=== PATIENT | female | born 1945 | race Caucasian/White ===

== ENCOUNTER → 2016-03-06 | Outpatient (CLI) | payer OTHER ==
--- NOTE | 2016-03-06 13:00 | DX ---
PA and Lateral Chest - March 06, 2016 Indication: Cough. Follow up left basilar consolidation and effusion. Comparison: Portable chest dated February 19, and two-view chest dated February 17, 2016. Findings: The left subpulmonic effusion and left basilar consolidation have gradually improved since 3 weeks prior. A small left subpulmonic effusion and left basilar consolidation does persist. The rig ht lung remains clear and the heart size is normal. No pulmonary edema. A small to moderate hiatal he rnia persists. Impression: 1. Gradually improving left basilar consolidation. 2. Significant improvement of subpulmonic effusion is now small.
== END ==
LOC: FIMAGING 10:38
PROVIDERS: ATTEND Internal Medicine Pulmonary Disease
DX: J18.1 Lobar pneumonia, unspecified organism (principal); J90 Pleural effusion, not elsewhere classified

== ENCOUNTER → 2016-04-29 | Outpatient (CLI) | payer OTHER | LOC: FIMAGING 09:52 | PROVIDERS: ATTEND Internal Medicine Infectious Disease | DX: J18.9 Pneumonia, unspecified organism (principal) ==

== ENCOUNTER → 2016-05-17 | Outpatient (CLI) | payer OTHER | LOC: FIMAGING 10:09 | DX: Z12.31 Encounter for screening mammogram for malignant neoplasm of breast (principal) | CPT/HCPCS: G0202 ==

== ENCOUNTER 2017-05-01 10:47 | Emergency (ER) | payer OTHER ==
[2017-05-01 10:54] VITALS: TEMP 97.5
[2017-05-01] MEDS ORDERED: IPRATROPIUM/ALBUTEROL 3 ML DEYVIAL IH ONE (11:20)
--- NOTE | 2017-05-01 11:20 | EDPHY ---
H & P Time Seen by Provider: 05/01/17 11:02 HPI/ROS: CHIEF COMPLAINT: Cough, shortness of breath HISTORY OF PRESENT ILLNESS: 72-year-old female with a history of asthma presents with cough and shortness of breath. Onset of sore throat, runny nose and cough yesterday. The cough is productive and associated with shortness of breath. The SOB is mild and occurs with exertion and with coughing. No known fever. She received a flu vaccination this year. History of pneumonia 1 year ago, requiring extensive ICU care. 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 Smoking Status: Never smoked Physical Exam: General Appearance: Alert, pleasant Eyes: Pupils equal and round, no conjunctival pallor ENT, Mouth: Mucous membranes moist Neck: Normal inspection Respiratory: Normal respiratory rate, diffuse expiratory wheezing Cardiovascular: Regular rate and rhythm Gastrointestinal: Abdomen is soft and nontender Neurological: A&O, nonfocal, normal gait Skin: Warm and dry, no rash Extremities: Normal inspection no tenderness Psychiatric: Mood and affect normal Constitutional: Initial Vital Signs Temperature (C) 36.4 C 05/01/17 10:52 Heart Rate 91 05/01/17 10:52 Respiratory Rate 18 05/01/17 10:52 Blood Pressure 134/94 H 05/01/17 10:52 O2 Sat (%) 96 05/01/17 10:52 O2 Delivery Mode Room Air Allergies/Adverse Reactions: Penicillins Allergy (Severe, Verified 05/04/17 05:08) Anaphylaxis oxycodone HCl [From Percocet] Allergy (Verified 05/04/17 05:08) Other-Enter Comments Home Medications: Medication Instructions Recorded Warfarin Sodium [Coumadin 2MG (*)] 2 mg PO DAILY16 02/13/16 Albuterol [Proventil Inhaler HFA 1 - 2 puffs IH Q4H #1 mdi 02/21/16 (*)] Azithromycin [Zithromax] 250 mg PO DAILY #6 tab 05/01/17 Symbicort 160-4.5 Mcg Inh (*) 05/01/17 predniSONE 1 tab PO DAILY #15 tab 05/01/17 Medical Decision Making - Diagnostics Imaging Results: Chest x-ray independently reviewed by me reveals no acute infiltrate. ED Course/Re-evaluation: This patient presents with a cough and bronchospasm. A DuoNeb was given. Declines prednisone. X-ray reveals no evidence of pneumonia. Oxygen saturation is normal, and wheezing resolved after duoneb. She is non-toxic appearing and afebrile. I feel that she can be safely discharged home. Given prior pneumonia and h/o asthma, rx for prednisone and zpak. Strongly encouraged her to take prednisone, as she is somewhat reluctant. Return precautions given. Differential Diagnosis: includes though not limited to pneumonia, pulm edema, status asthmaticus, empyema, PE - Data Points Medications Given: Discontinued Medications Albuterol/Ipratropium (Duoneb) 3 ml IH EDNOW ONE Stop: 05/01/17 11:21 Last Admin: 05/01/17 11:31 Dose: 3 ml Departure - Departure Disposition: Home, Routine, Self-Care Clinical Impression: Exacerbation of asthma Qualifiers: Asthma severity: mild Asthma persistence: intermittent Qualified Code(s): J45.21 - Mild intermittent asthma with (acute) exacerbation Acute bronchitis Qualifiers: Bronchitis organism: unspecified organism Qualified Code(s): J20.9 - Acute bronchitis, unspecified Condition: Good Instructions: Acute Bronchitis (ED), Bronchospasm (ED) Additional Instructions: Antibiotics can interfere with your protime. Have your protime rechecked 48-72 hours after starting antibiotics. Return for increasing shortness of breath, worsening cough, fever, any concerns. Referrals: Thuy Alvarado MD [Medical Doctor] - As per Instructions (Followup for persistent or worsening symptoms.) Prescriptions: Azithromycin [Zithromax] 250 mg PO DAILY #6 tab predniSONE 1 tab PO DAILY #15 tab
[2017-05-01 12:07] VITALS: BP 121/83; PULSE 92; RESP 16; O2SAT 94
== END 2017-05-01 12:07 | disposition home or self-care (01) ==
DX: J45.21 Mild intermittent asthma with (acute) exacerbation (principal); J20.9 Acute bronchitis, unspecified; Z85.810 Personal history of malignant neoplasm of tongue; Z79.01 Long term (current) use of anticoagulants

== ENCOUNTER 2017-05-04 05:04 | Inpatient (IN) | payer OTHER ==
[2017-05-04] MEDS ORDERED: IPRATROPIUM/ALBUTEROL 3 ML DEYVIAL IH ONE (05:21)
--- NOTE | 2017-05-04 05:26 | EDPHY ---
H & P Stated Complaint: SOB SEEN FRIDAY STARTED ON ZPAC, PREDNISONE NO BETTER Time Seen by Provider: 05/04/17 05:11 HPI/ROS: Chief Complaint: Shortness of breath HPI: 72-year-old woman with a history of asthma is presenting with several days of worsening cough and shortness of breath. She was seen here 2 days ago and diagnosed with bronchitis. She was started on prednisone and azithromycin. She had a negative chest x-ray at that time. Patient has been taking her medications was having worsening shortness of breath. This morning her breathing became significantly worse. She has a cough productive of some whitish sputum. No fevers or chills. No chest pain. She does have a history of hypercoagulable state and is on Coumadin. No pleuritic chest pain. No leg pain or swelling. No. Is of immobility. She states this does not feel like prior pulmonary emboli. ROS: 10 point Review of Systems is negative except as noted in the HPI. PMH: Asthma, hypercoagulable state, tongue cancer, PE and DVT Social History: [No] smoking, [no] alcohol, [ no recreational drug use] Family History: [non-contributory] Physical Exam: Gen: [Awake], [Alert], [No Distress] HEENT: [ ] [Nose: no rhinorrhea] Eyes: [PERRLA], [EOMI] Mouth: [Moist mucosa] [] Neck: [Supple], [no JVD] Chest: [nontender], diffuse expiratory wheezing, no focal rales or rhonchi Heart: [S1, S2 normal], [no murmur] Abd: [Soft], [non-tender], [no guarding] Back: [no CVA tenderness], [no] midline tenderness [] Ext: [no] edema, [non-tender] Skin: [no rash] Neuro: [CN II-XII intact], [Sensation grossly intact], Strength [5]/5 in [ bilateral] [upper and] [lower] extremities - Personal History Current Tetanus/Diphtheria Vaccine: Yes Current Tetanus Diphtheria and Acellular Pertussis (TDAP): Yes Tetanus Vaccine Date: 2007 - Medical/Surgical History Hx Asthma: No Hx Chronic Respiratory Disease: No Hx Diabetes: No Hx Cardiac Disease: No Hx Renal Disease: No Hx Cirrhosis: No Hx Alcoholism: No Hx HIV/AIDS: No Hx Splenectomy or Spleen Trauma: No Other PMH: tongue cancer, hypercoagulative blood disorder, superficial blood clots, knee replacements, pulmonary embolus, asthma, - Social History Smoking Status: Never smoked Constitutional: Initial Vital Signs Heart Rate 95 05/04/17 05:06 Respiratory Rate 18 05/04/17 05:06 Blood Pressure 134/93 H 05/04/17 05:06 O2 Sat (%) 89 L 05/04/17 05:06 O2 Delivery Mode Room Air Allergies/Adverse Reactions: Penicillins Allergy (Severe, Verified 05/04/17 05:08) Anaphylaxis oxycodone HCl [From Percocet] Allergy (Verified 05/04/17 05:08) Other-Enter Comments Home Medications: Medication Instructions Recorded Warfarin Sodium [Coumadin 2MG (*)] 2 mg PO DAILY16 02/13/16 Albuterol [Proventil Inhaler HFA 1 - 2 puffs IH Q4H #1 mdi 02/21/16 (*)] Azithromycin [Zithromax] 250 mg PO DAILY #6 tab 05/01/17 Symbicort 160-4.5 Mcg Inh (*) 05/01/17 predniSONE 1 tab PO DAILY #15 tab 05/01/17 Medical Decision Making ED Course/Re-evaluation: 72-year-old with a history of asthma presenting with increasing shortness of breath. She has seen here 2 days ago started on prednisone and albuterol and azithromycin. She is worse here. She is satting in the high 80s. I have given her a DuoNeb treatment. Following that she is still satting at 86% on room air. Will place an IV. Will check bloods including INR. IV Solu-Medrol. Will call the hospitalist for planned admission. - Data Points Medications Given: Discontinued Medications Albuterol/Ipratropium (Duoneb) 3 ml IH EDNOW ONE Stop: 05/04/17 05:22 Last Admin: 05/04/17 05:24 Dose: 3 ml Departure - Departure Disposition: [facility] Inpatient Acute Clinical Impression: Exacerbation of asthma Condition: Fair Referrals: Cecelia Gonzalez MD [Primary Care Provider] - As per Instructions
[2017-05-04] MEDS ORDERED: ONDANSETRON 4 MG/2 ML VIAL IVP PRN (05:52)
[2017-05-04] MEDS ORDERED: ONDANSETRON DISINTEGRATING 4 MG TAB PO PRN (05:52)
[2017-05-04] MEDS ORDERED: ACETAMINOPHEN 325 MG TAB PO PRN (05:52)
[2017-05-04] MEDS ORDERED: ALBUTEROL 3 ML DEYVIAL IH PRN (05:52)
[2017-05-04 06:05] LABS: PLATELET COUNT 248 10^3/uL (150-400)
[2017-05-04 06:16] LABS: INR 1.7 (0.83-1.16); PROTIME(PATIENT) 20.1 SEC (12.0-15.0)
--- NOTE | 2017-05-04 06:39 | PDGENHP ---
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 Patient states she developed reactive airways after bout of serious pneumonia in 2015. She began to feel short of breath on Friday. She had a sick contact at the gym and also worked with some hay at her stables. She thinks both triggers may have contributed. She was seen in ED on Friday and started on prednisone and azithromycin. She felt a bit better Friday but then began to feel worse again. She had severe wheezing this morning upon presentation but improved nicely with nebulizer treatment. At the time of my evaluation she is speaking in full sentences and only requiring 2 L/min O2. History Information - Allergies/Home Medication List Allergies/Adverse Reactions: Penicillins Allergy (Severe, Verified 05/04/17 05:08) Anaphylaxis oxycodone HCl [From Percocet] Allergy (Verified 05/04/17 05:08) Other-Enter Comments Home Medications: Warfarin Sodium [Coumadin 2MG (*)] 2 mg PO DAILY16 02/13/16 [Last Taken 16:30] Symbicort 160-4.5 Mcg Inh (*) 05/01/17 [Last Taken Unknown] I have personally reviewed and updated: family history, medical history - Past Medical History asthma, cancer, DVT - Family History Positive for: cancer - Social History Smoking Status: Never smoked Review of Systems Review of Systems: ROS: 10pt was reviewed & negative except for what was stated in HPI & below Physical Exam Physical Exam: Temp Pulse Resp BP Pulse Ox 36.6 C 91 18 120/74 94 05/04/17 06:30 05/04/17 06:00 05/04/17 06:00 05/04/17 06:00 05/04/17 06:00 O2 (L/minute) 3 Constitutional: no apparent distress, not in pain Eyes: PERRL, EOMI Ears, Nose, Mouth, Throat: moist mucous membranes, no oral mucosal ulcers Cardiovascular: regular rate and rhythym, no murmur, rub, or gallop Respiratory: no respiratory distress, expiratory wheeze Gastrointestinal: normoactive bowel sounds, soft, non-tender abdomen Skin: warm, no induration Musculoskeletal: full muscle strength, no muscle tenderness Neurologic: AAOx3, CN II-XII Intact Psychiatric: interacting appropriately, not anxious Lab Data & Imaging Review 05/04/17 05:55 05/04/17 05:55 WBC 7.94 10^3/uL (3.80-9.50) 05/04/17 05:55 RBC 4.69 10^6/uL (4.18-5.33) 05/04/17 05:55 Hgb 13.4 g/dL (12.6-16.3) 05/04/17 05:55 Hct 40.8 % (38.0-47.0) 05/04/17 05:55 MCV 87.0 fL (81.5-99.8) 05/04/17 05:55 MCH 28.6 pg (27.9-34.1) 05/04/17 05:55 MCHC 32.8 g/dL (32.4-36.7) 05/04/17 05:55 RDW 14.5 % (11.5-15.2) 05/04/17 05:55 Plt Count 248 10^3/uL (150-400) 05/04/17 05:55 MPV 9.2 fL (8.7-11.7) 05/04/17 05:55 Neut % (Auto) 65.5 % (39.3-74.2) 05/04/17 05:55 Lymph % (Auto) 23.7 % (15.0-45.0) 05/04/17 05:55 [place] % (Auto) 8.8 % (4.5-13.0) 05/04/17 05:55 Eos % (Auto) 1.0 % (0.6-7.6) 05/04/17 05:55 Baso % (Auto) 0.6 % (0.3-1.7) 05/04/17 05:55 Nucleat RBC Rel Count 0.0 % (0.0-0.2) 05/04/17 05:55 Absolute Neuts (auto) 5.20 10^3/uL (1.70-6.50) 05/04/17 05:55 Absolute Lymphs (auto) 1.88 10^3/uL (1.00-3.00) 05/04/17 05:55 Absolute Monos (auto) 0.70 10^3/uL (0.30-0.80) 05/04/17 05:55 Absolute Eos (auto) 0.08 10^3/uL (0.03-0.40) 05/04/17 05:55 Absolute Basos (auto) 0.05 10^3/uL (0.02-0.10) 05/04/17 05:55 Absolute Nucleated RBC 0.00 10^3/uL (0-0.01) 05/04/17 05:55 Immature Gran % 0.4 % (0.0-1.1) 05/04/17 05:55 Immature Gran # 0.03 10^3/uL (0.00-0.10) 05/04/17 05:55 PT 20.1 SEC (12.0-15.0) H 05/04/17 05:55 INR 1.70 (0.83-1.16) H 05/04/17 05:55 APTT 31.5 SEC (23.0-38.0) 05/04/17 05:55 Visualized and Interpreted Chest x-ray results: Yes Chest X-Ray results: no infiltrate Assessment & Plan Assessment: 72 yo F w/ hx of DVT/PE, RAD, and tongue CA p/w RAD exacerbation. Plan: 1. RAD exacerbation - Unclear trigger, patient describes sick contact at the gym and then she worked with hay at her stable prior to onset of symptoms. Symptoms progressed despite outpatient prednisone and azithromycin. Overall this appears mild currently as she is not in respiratory distress and only mildly hypoxic. - Continue prednisone and azithromycin, currently day 3/5 - Check respiratory PCR - Albuterol QID rolando + q2h PRN 2. AHRF - 2/2 above; wean O2 as able. 3. Hx of VTE/PE - On warfarin for AC, INR subtherapeutic at 1.7 on admission. - Will bridge with Lovenox 1 mg/kg BID until INR therapeutic, patient states she clots quickly w/ subtherapeutic INR - Will not purse wether PE is contributing to above as she is receiving treatment regardless 4. Hx tongue cancer - Followed at [facility].l Diet - Regular Code - Full Ppx - LMWH + warfarin Dispo - Admit under observation status
[2017-05-04] MEDS: ENOXAPARIN 80 MG/0.8 ML SYR SC SCH ×2 (07:09→21:11)
[2017-05-04] MEDS: predniSONE 20 MG TAB PO SCH (08:46)
[2017-05-04] MEDS: AZITHROMYCIN 250 MG TAB PO SCH (08:46)
[2017-05-04] MEDS ORDERED: SYMBICORT IH PRN (10:21)
[2017-05-04] MEDS ORDERED: ALBUTEROL 60 PUFFS/8 GM MDI IH SCH (10:30)
[2017-05-04] MEDS: ALBUTEROL 3 ML DEYVIAL IH SCH ×4 (10:37→21:30)
[2017-05-04] MEDS: guaiFENesin 200 MG/10 ML UDL PO SCH ×2 (14:04→21:11)
--- NOTE | 2017-05-04 14:43 | HOSPPROG ---
Hospitalist Progress Note Assessment/Plan: 72 yo F w/ hx of DVT/PE, RAD, and tongue CA p/w RAD exacerbation. Plan: 1. RAD exacerbation - -Human metapneumavirus - patient describes sick contact at the gym and then she worked with hay at her stable prior to onset of symptoms. -Symptoms progressed despite outpatient prednisone and azithromycin. -Overall this appears mild currently as she is not in respiratory distress and only mildly hypoxic. - Continue prednisone and azithromycin, currently day 3/5 - Albuterol QID rolando + q2h PRN 2. AHRF - 2/2 above; wean O2 as able. 3. Hx of VTE/PE - - On warfarin for AC, INR subtherapeutic at 1.7 on admission. - Will bridge with Lovenox 1 mg/kg BID until INR therapeutic, patient states she clots quickly w/ subtherapeutic INR - Will not purse wether PE is contributing to above as she is receiving treatment regardless 4. Hx tongue cancer - Followed at [facility].l 5. Dsipo -unclear Diet - Regular Code - Full Ppx - LMWH + warfarin Dispo - Admit under observation status Subjective: Still feeling ill with cough. Objective: Vital Signs Temp Pulse Resp BP Pulse Ox 36.6 C 91 16 125/69 H 90 L 05/04/17 11:57 05/04/17 11:57 05/04/17 11:57 05/04/17 11:57 05/04/17 11:57 Microbiology 05/04/17 10:45 Respiratory Panel (PCR) - Final Nasal, Sinus - Swab Human Metapneumovirus Laboratory Results 05/04/17 05:55 05/04/17 05:55 05/03/17 05/04/17 05/05/17 05:59 05:59 05:59 Intake Total 0 Balance 0 PT 20.1 SEC (12.0-15.0) H 05/04/17 05:55 INR 1.70 (0.83-1.16) H 05/04/17 05:55 - Physical Exam Constitutional: no apparent distress, appears nourished Eyes: PERRL, anicteric sclera Ears, Nose, Mouth, Throat: moist mucous membranes, hearing normal Cardiovascular: No JVD, No edema Respiratory: no respiratory distress, reduced air movement Gastrointestinal: No tenderness, No ascites Skin: warm, normal color Musculoskeletal: normal joint ROM, no joint effusions, generalized weakness Neurologic: AAOx3 Psychiatric: interacting appropriately, not anxious, not encephalopathic, thought process linear ICD10 Worksheet Patient Problems: Problems Problem Status Onset Pulmonary embolism Acute Acute bronchitis Acute Exacerbation of asthma Acute Exacerbation of asthma Acute
[2017-05-04] MEDS ORDERED: WARFARIN SODIUM 3 MG TAB PO ONE (16:00)
[2017-05-04] MEDS ORDERED: WARFARIN SODIUM 2 MG TAB PO SCH (16:30)
--- NOTE | 2017-05-04 16:47 | ASMTCMCOM ---
CM Note CM Note Notes: Patient admitted via ED for Shortness of Breath/Reactive Airway Exacerbation. Has a hx of Pulmonary Embolism and on Warfarin, INR 1.7 on admission. Patient being treated for tongue cancer which is being followed by [facility]. Discharge needs to be determined, likely independent. CM available to follow for discharge needs. Date Signed: 05/04/2017 04:46 PM Electronically Signed By:Kristy Jason
[2017-05-04] MEDS: FERROUS SULFATE 325 MG TAB PO SCH (21:11)
[2017-05-05] MEDS: ALBUTEROL 3 ML DEYVIAL IH SCH ×4 (03:49→21:30)
[2017-05-05] MEDS: predniSONE 20 MG TAB PO SCH (09:16)
[2017-05-05] MEDS: FERROUS SULFATE 325 MG TAB PO SCH ×2 (09:16→21:10)
[2017-05-05] MEDS: guaiFENesin 200 MG/10 ML UDL PO SCH ×2 (09:16→21:11)
[2017-05-05] MEDS: AZITHROMYCIN 250 MG TAB PO SCH (09:16)
[2017-05-05] MEDS: ENOXAPARIN 80 MG/0.8 ML SYR SC SCH ×2 (09:16→21:11)
[2017-05-05] MEDS ORDERED: cefTRIAXone 1 GM in STERILE WATER INJ 10 ML IV SCH (11:15)
--- NOTE | 2017-05-05 15:01 | HOSPPROG ---
Hospitalist Progress Note Assessment/Plan: 72 yo F w/ hx of DVT/PE, RAD, and tongue CA p/w RAD exacerbation. Plan: 1. RAD exacerbation - - Human metapneumavirus - patient describes sick contact at the gym and then she worked with hay at her stable prior to onset of symptoms. -Symptoms progressed despite outpatient prednisone and azithromycin. - Pt appears worse today - Continue prednisone, DC azithro start levaquin - Albuterol QID rolando + q2h PRN 2. AHRF - 2/2 above; wean O2 as able. 3. Hx of VTE/PE - - On warfarin for AC, INR subtherapeutic at 1.7 on admission. - Will bridge with Lovenox 1 mg/kg BID until INR therapeutic, patient states she clots quickly w/ subtherapeutic INR - Will not purse wether PE is contributing to above as she is receiving treatment regardless 4. Hx tongue cancer - Followed at [facility]. 5.Hx of complicated PNA -consider ID consult if not improving 6. Dispo -unclear Diet - Regular Code - Full Ppx - LMWH + warfarin Dispo - Change to inpt status requires cont in hospital support Subjective: Feeling terrible today. SOB. Tired. Objective: Vital Signs Temp Pulse Resp BP Pulse Ox 36.6 C 93 20 138/77 H 92 05/05/17 12:00 05/05/17 12:00 05/05/17 12:00 05/05/17 12:00 05/05/17 12:00 Microbiology 05/04/17 10:45 Respiratory Panel (PCR) - Final Nasal, Sinus - Swab Human Metapneumovirus Laboratory Results 05/04/17 05:55 05/04/17 05:55 05/04/17 05/05/17 05/06/17 05:59 05:59 05:59 Intake Total 550 Balance 550 PT 20.1 SEC (12.0-15.0) H 05/04/17 05:55 INR 1.70 (0.83-1.16) H 05/04/17 05:55 - Physical Exam Constitutional: appears nourished, not in pain, uncomfortable Eyes: PERRL, anicteric sclera, EOMI Ears, Nose, Mouth, Throat: moist mucous membranes, hearing normal, ears appear normal Cardiovascular: No regular rate and rhythym, No JVD, No edema Respiratory: no respiratory distress, reduced air movement, rhonchi Gastrointestinal: normoactive bowel sounds, No tenderness, No ascites Skin: warm, normal color, No erythema Musculoskeletal: normal joint ROM, no joint effusions, generalized weakness Neurologic: AAOx3 Psychiatric: interacting appropriately, not anxious, not encephalopathic, thought process linear ICD10 Worksheet Patient Problems: Problems Problem Status Onset Pulmonary embolism Acute Acute bronchitis Acute Exacerbation of asthma Acute Exacerbation of asthma Acute
[2017-05-05] MEDS: WARFARIN SODIUM 2 MG TAB PO SCH (16:33)
[2017-05-06] MEDS: ALBUTEROL 3 ML DEYVIAL IH SCH ×4 (05:48→22:40)
[2017-05-06 05:52] LABS: INR 2.31 (0.83-1.16); PROTIME(PATIENT) 25.4 SEC (12.0-15.0)
[2017-05-06] MEDS ORDERED: BUDESONIDE/FORMOTEROL 160/4.5 60 PUFFS/MDI IH PRN (08:30)
[2017-05-06] MEDS: ENOXAPARIN 80 MG/0.8 ML SYR SC SCH (09:53)
[2017-05-06] MEDS: guaiFENesin 200 MG/10 ML UDL PO SCH (09:53)
[2017-05-06] MEDS: FERROUS SULFATE 325 MG TAB PO SCH ×2 (09:53→20:39)
[2017-05-06] MEDS: predniSONE 20 MG TAB PO SCH (09:54)
--- NOTE | 2017-05-06 11:16 | HOSPPROG ---
Hospitalist Progress Note Assessment/Plan: 72 yo F w/ hx of DVT/PE, RAD, and tongue CA p/w RAD exacerbation. Today is my 1st encounter with the patient. Chart reviewed. * reactive airway disease exacerbation, likely an upper respiratory viral infection -PCR shows human metapneumovirus -was recently treated with azithromycin now started on Levaquin -prednisone and albuterol four times daily scheduled and p.r.n. * acute hypoxemic respiratory failure -on 2 liters of oxygen * Hx of VTE/PE - - On warfarin for AC, INR subtherapeutic at 1.7 on admission and today INR is 2.31 - was bridged w Lovenox * Hx tongue cancer - Followed at [facility]. *Hx of complicated PNA -asked ID to see, patient is very concerned with her PMH of pna and feels she is slowly getting better Subjective: Kristin is feeling possibly better. Objective: Vital Signs Temp Pulse Resp BP Pulse Ox 36.6 C 95 18 139/73 H 93 05/06/17 07:45 05/06/17 07:45 05/06/17 07:45 05/06/17 07:45 05/06/17 07:45 Laboratory Results 05/04/17 05:55 05/04/17 05:55 05/05/17 05/06/17 05/07/17 05:59 05:59 05:59 Intake Total 550 600 Balance 550 600 PT 25.4 SEC (12.0-15.0) H 05/06/17 05:14 INR 2.31 (0.83-1.16) H 05/06/17 05:14 - Physical Exam Constitutional: no apparent distress, appears nourished, not in pain Eyes: PERRL Ears, Nose, Mouth, Throat: hearing normal Cardiovascular: regular rate and rhythym Respiratory: no respiratory distress, rhonchi (left lower lobe) Skin: warm Musculoskeletal: full muscle strength Neurologic: AAOx3 Psychiatric: interacting appropriately ICD10 Worksheet Patient Problems: Problems Problem Status Onset Exacerbation of asthma Acute Acute bronchitis Acute Exacerbation of asthma Acute Pulmonary embolism Acute
[2017-05-06] MEDS ORDERED: BENZONATATE 100 MG CAP PO PRN (12:50)
--- NOTE | 2017-05-06 14:29 | GCON ---
[f rep st] CONSULTATION INFECTIOUS DISEASE CONSULTATION REFERRING PHYSICIAN: Deandra Allen NP REASON FOR CONSULTATION: Shortness of breath, respiratory symptoms, positive for human metapneumovirus. CHIEF COMPLAINT: Shortness of breath. HISTORY OF PRESENT ILLNESS: This is a 72-year-old female with a past medical history significant for tongue cancer, DVT/PE, asthma, history of left lower lobe pneumonia with complicated effusion back in 2016, who was admitted after complaints of increasing shortness of breath. She states that she started to feel ill last week. She had been out to the gym a few days prior to that and was on the bike, and a gentleman next to her had some respiratory symptoms and was blowing his nose and throwing the tissue paper on the floor there. She states that shortly thereafter, she started to feel ill with increasing shortness of breath and cough. She came into the ED on the 01 of May and had a chest x-ray done, which showed no evidence of any pneumonia. She had O2 saturations of 96%. She was afebrile. She was sent home on prednisone and a Z-Jeewl. She states that over the next several days, she did not feel any improvement in her symptoms and thus came back to the ED on the . A followup chest x-ray done on that date showed stable left basilar scarring. No new infiltrates. Mild perihilar bronchitis. Labs done on that day were unremarkable. She had a normal white blood cell count with no left shift. She did have a respiratory panel done, which showed positive for human metapneumovirus. She was maintained on steroids at 40 mg a day and also maintained on azithromycin. Her O2 saturation when she came in that day was 89%. She is normally not on oxygen. She was on 3 L at the time, and now it is sort of fluctuating between 2 and 3 L. Due to increasing shortness of breath and cough, the hospitalist discussed the case with Dr. Henson, and she was placed on Levaquin. Today, she states that she feels maybe 25% better. She is having more loosening of her secretions and is able to cough up more phlegm. She describes the phlegm as thick yellow secretions. She remains afebrile. She feels that her breathing is stable and is not difficult or painful to take a deep breath. Infectious Disease is now consulted for further evaluation and opinion. REVIEW OF SYSTEMS: GENERAL: Denied any fevers or shaking chills. HEAD: No headaches. EYES: No change in vision. ENT: No sore throat, difficulty swallowing, ear pain, or ear drainage. CARDIOVASCULAR: No chest pain or rapid heartbeat. RESPIRATORY: As above. ABDOMEN: No nausea, vomiting, abdominal pain, or diarrhea. : No dysuria or hematuria. MUSCULOSKELETAL: Denies any lower extremity pain, joint pains. SKIN: No rashes. Rest of 10-point review of systems essentially negative except for above. PAST MEDICAL HISTORY: Significant for DVT, PE with her history of hypercoagulable condition. Tongue cancer with possible recurrence, monitored by Dr. Omalley. Asthma diagnosed at [facility]. History of left lower lobe pneumonia with a complicated effusion back in February 2016, status post prolonged course of IV antibiotics with Invanz. PAST SURGICAL HISTORY: Significant for bilateral knee replacements, revision of right side of the tongue in August 2014. SOCIAL HISTORY: Nonsmoker. Does not drink alcohol. ALLERGIES: She states to penicillin, although she does not know what the reaction was. She said it was in her childhood, and she was just told not to take it again. She was given Invanz therapy here back in February 2016 and did not have any significant reactions to it and tolerated it for a prolonged course of therapy. FAMILY HISTORY: She states that her family history is unremarkable. She states that her mother was also AB blood positive like she is. MEDICATIONS: As per MAR. PHYSICAL EXAMINATION: VITAL SIGNS: Temperature current 36.6, pulse is 86, blood pressure 141/80, respiratory rate of 20, saturation 93% on 3 L O2 via nasal cannula. GENERAL: She is sitting up in bed in no acute respiratory distress. Awake, alert, oriented x3. HEENT: Eyes without conjunctival injection or petechiae. Oropharynx: No posterior erythema or thrush. She has whitish lesions on the lateral aspect of her right tongue. CARDIOVASCULAR: S1 , S2. Regular rate and rhythm. RESPIRATORY: Mild coarse breath sounds at the bases, particularly in the left base. No tyrone rhonchi appreciated. ABDOMEN: Positive bowel sounds in all 4 quadrants. Soft, nontender, nondistended. EXTREMITIES: Without lower extremity edema. She has varicose veins. She has evidence of bilateral knee surgeries. No joint effusions appreciated. SKIN: No rashes. LABORATORY DATA: White blood cell count 7.9, hemoglobin 13.4, platelets are 248 , neutrophil count of 65%. INR 2.3. Sodium 143, potassium 3.7, chloride 106, bicarb 26, BUN is 14, creatinine 0.8. Respiratory panel, PCR as stated above. IMAGING: Results have all been reviewed by me and are stated above. ASSESSMENT: Human metapneumovirus respiratory infection with possible secondary bacterial infection. PLAN: Followup x-rays have not identified an area of consolidation nor evidence of pneumonia. Patient has steadily complained of increasing symptoms over the past several days. However, today is the first day she is starting to feel better. Most likely this is the regular course of response from her viral infection, which usually takes at least a week or so to start improving in symptoms. However, can't exclude possibly a response to Levaquin therapy. Will check a sputum culture given that she is complaining of increasing respiratory secretions today and is very concerned about it. Would not do long course of Levaquin based on current information. If she continues to worsen, then would consider CT of chest for further evaluation. Otherwise, will monitor closely for now. Plan of care was discussed at length with the patient. Care was coordinated with her nurse. I thank you very much for the opportunity to care for your patient in consultation. /[id number]/MODL MTDD
[2017-05-06] MEDS: guaiFENesin 600 MG TAB.ER PO SCH ×2 (15:25→20:39)
--- NOTE | 2017-05-06 21:01 | PDMN ---
Medical Necessity Medical necessity: Patient meets inpatient criteria per ANESTHESIA ATTENDING note and MCG M-60 Asthma (sat 89% on RA; + for human metapneumovirus; anticipated LOS > 2 midnights for ongoing supplemental O2, freq nebs, ongoing IV antibiotics and po steroids.)
[2017-05-07] MEDS: ALBUTEROL 3 ML DEYVIAL IH SCH ×4 (05:04→20:59)
[2017-05-07 06:47] LABS: INR 2.17 (0.83-1.16); PROTIME(PATIENT) 24.2 SEC (12.0-15.0)
[2017-05-07] MEDS: predniSONE 20 MG TAB PO SCH (08:35)
[2017-05-07] MEDS: FERROUS SULFATE 325 MG TAB PO SCH ×2 (08:35→21:25)
[2017-05-07] MEDS: guaiFENesin 600 MG TAB.ER PO SCH ×2 (08:35→21:25)
--- NOTE | 2017-05-07 11:19 | HOSPPROG ---
Hospitalist Progress Note Assessment/Plan: 72 yo F w/ hx of DVT/PE, RAD, and tongue CA p/w RAD exacerbation. * reactive airway disease exacerbation, likely an upper respiratory viral infection -PCR shows human metapneumovirus -was recently treated with azithromycin now started on Levaquin -prednisone to be weaned, patient feels this isn't helping -albuterol four times daily scheduled and p.r.n. -trial of magnesium IV to bronchodilate * acute hypoxemic respiratory failure -on 2 liters of oxygen -takes Symbicort prn, added it as scheduled * Hx of VTE/PE - - On warfarin for AC, INR subtherapeutic at 1.7 on admission and today INR is 2.17 - was bridged w Lovenox * Hx tongue cancer - Followed at [facility]. *Hx of complicated PNA -appreciate ID seeing her *Plan: Kristin is still feeling poorly, wants to be dc but still not quite ready. Subjective: Kristin is feeling more tired today. Objective: Vital Signs Temp Pulse Resp BP Pulse Ox 36.6 C 90 20 141/72 H 94 05/07/17 08:00 05/07/17 08:00 05/07/17 08:00 05/07/17 08:00 05/07/17 08:00 Microbiology 05/06/17 14:06 - Final Sputum, Expectorated Laboratory Results 05/04/17 05:55 05/04/17 05:55 05/06/17 05/07/17 05/08/17 05:59 05:59 05:59 Intake Total 600 Balance 600 PT 24.2 SEC (12.0-15.0) H 05/07/17 06:30 INR 2.17 (0.83-1.16) H 05/07/17 06:30 - Physical Exam Constitutional: appears nourished, not in pain Eyes: PERRL Ears, Nose, Mouth, Throat: hearing normal Cardiovascular: regular rate and rhythym Respiratory: no respiratory distress, clear to auscultation, reduced air movement (bases) Skin: warm, normal color Musculoskeletal: full muscle strength Neurologic: AAOx3 Psychiatric: interacting appropriately ICD10 Worksheet Patient Problems: Problems Problem Status Onset Exacerbation of asthma Acute Acute bronchitis Acute Exacerbation of asthma Acute Pulmonary embolism Acute
[2017-05-07] MEDS ORDERED: predniSONE 20 MG TAB PO SCH (11:25)
[2017-05-07] MEDS: BUDESONIDE/FORMOTEROL 160/4.5 60 PUFFS/MDI IH SCH ×2 (11:37→20:59)
[2017-05-07] MEDS ORDERED: MAGNESIUM SULF 1 GM/DEXTROSE 100 ML IV ONE (13:34)
--- NOTE | 2017-05-07 14:13 | ASMTCMCOM ---
CM Note CM Note Notes: Spoke w/RN, anticipate will dc home w/support of when medically stable. CM availble for any changes. DC Plan: Independent Date Signed: 05/07/2017 02:13 PM Electronically Signed By:Uma Chin RN
[2017-05-07] MEDS: WARFARIN SODIUM 2 MG TAB PO SCH (16:04)
--- NOTE | 2017-05-07 20:32 | PCMIDPN ---
Assessment/Plan: Assessment/Plan: * Human metapneumovirus respiratory tract infection: Clinically improved. Chest x-ray without evidence of pneumonia. 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 Given overall clinical findings, favor discontinuation of levofloxacin with continued supportive care. Discussed this with patient today who also concurs with stopping antibiotic therapy. Anticipate likely will discharge home soon as respiratory status stabilizes. Yeast present in sputum does not require targeted therapy as unlikely contributing to current presentation. 05/07/17 20:29 05/07/17 20:31 Subjective: Feels significantly improved. Remains with dry cough. Feels like nebulizers are helping significantly. Notes at home also with respiratory illness. Objective: Vital Signs Temp Pulse Resp BP Pulse Ox 36.4 C 83 14 147/86 H 92 05/07/17 20:00 05/07/17 20:00 05/07/17 20:00 05/07/17 20:00 05/07/17 20:00 Microbiology 05/06/17 14:06 - Final Sputum, Expectorated Laboratory Results 05/04/17 05:55 05/07/17 11:42 05/06/17 05/07/17 05/08/17 05:59 05:59 05:59 Intake Total 600 0 Balance 600 0 Levofloxacin # 3 (status post azithromycin) Sputum with yeast - Physical Exam General Appearance: alert, no apparent distress EENT: No scleral icterus, No thrush Respiratory: lungs clear, other (Occasional dry cough), No respiratory distress Cardiac/Chest: regular rate, rhythm Extremities: No inflammation Abdomen: non-tender, No distended ICD10 Worksheet Patient Problems: Problems Problem Status Onset Exacerbation of asthma Acute Acute bronchitis Acute Exacerbation of asthma Acute Pulmonary embolism Acute
[2017-05-08] MEDS: ALBUTEROL 3 ML DEYVIAL IH SCH ×2 (05:11→11:08)
[2017-05-08 05:18] VITALS: BP 129/81
[2017-05-08 05:48] LABS: INR 2.28 (0.83-1.16); PROTIME(PATIENT) 25.1 SEC (12.0-15.0)
[2017-05-08 08:14] VITALS: PULSE 79; RESP 20; TEMP 96.6; O2SAT 92
[2017-05-08] MEDS: BUDESONIDE/FORMOTEROL 160/4.5 60 PUFFS/MDI IH SCH (08:19)
[2017-05-08] MEDS: FERROUS SULFATE 325 MG TAB PO SCH (08:31)
[2017-05-08] MEDS: guaiFENesin 600 MG TAB.ER PO SCH (08:31)
--- NOTE | 2017-05-08 09:40 | HOSPPROG ---
Hospitalist Progress Note Assessment/Plan: 72 yo F w/ hx of DVT/PE, RAD, and tongue CA p/w RAD exacerbation. * reactive airway disease exacerbation, likely an upper respiratory viral infection -PCR shows human metapneumovirus -was recently treated with azithromycin, Levaquin dc -prednisone to be weaned, patient feels this isn't helping -albuterol four times daily scheduled and p.r.n. - magnesium IV helped her symptoms * acute hypoxemic respiratory failure -on room air -takes Symbicort prn, added it as scheduled * Hx of VTE/PE - - On warfarin for AC, INR subtherapeutic at 1.7 on admission and today INR is 2.28 - was bridged w Lovenox * Hx tongue cancer - Followed at [facility]. *Hx of complicated PNA -appreciate ID seeing her *Plan: Kristin is feeling much better today Subjective: Kristin is feeling better today. Objective: Vital Signs Temp Pulse Resp BP Pulse Ox 35.9 C L 79 20 129/81 H 92 05/08/17 08:00 05/08/17 08:00 05/08/17 08:00 05/08/17 08:00 05/08/17 08:00 Microbiology 05/06/17 14:06 - Final Sputum, Expectorated Laboratory Results 05/04/17 05:55 05/07/17 11:42 05/07/17 05/08/17 05/09/17 05:59 05:59 05:59 Intake Total 0 Balance 0 PT 25.1 SEC (12.0-15.0) H 05/08/17 05:17 INR 2.28 (0.83-1.16) H 05/08/17 05:17 - Physical Exam Constitutional: no apparent distress, appears nourished, not in pain Eyes: PERRL Ears, Nose, Mouth, Throat: hearing normal Cardiovascular: regular rate and rhythym Respiratory: no respiratory distress, reduced air movement, expiratory wheeze Gastrointestinal: normoactive bowel sounds Skin: warm Musculoskeletal: full muscle strength Neurologic: AAOx3 Psychiatric: interacting appropriately ICD10 Worksheet Patient Problems: Problems Problem Status Onset Exacerbation of asthma Acute Acute bronchitis Acute Exacerbation of asthma Acute Pulmonary embolism Acute
--- NOTE | 2017-05-08 10:12 | GDS ---
[f rep st] DISCHARGE SUMMARY DISCHARGE DIAGNOSIS: 1. Reactive airway disease exacerbation complicated with an upper respiratory viral infection. 2. Acute hypoxemic respiratory failure. 3. History of a pulmonary embolus and deep venous thrombosis. 4. History of tongue cancer. 5. History of complicated pneumonia. CONSULTATION: Dr. Tatiana Wells with Infectious Disease. HISTORY: Briefly, Kristin Miller is a 72-year-old woman with a past medical history significant for tongue cancer, DVT/PE, asthma, history of left lower lobe pneumonia that was complicated with an eff usion back in 2016. She was admitted after complaints of increasing shortness of breath. She starte d to feel ill after working out at the gym. She noticed someone next to her was coughing. She went to see her physician who placed her on prednisone and a Z-Jewel. She felt no improvement. She was see n and evaluated by the infectious disease team. There was concern she could have a possible secondar y bacterial infection and was treated with Levaquin. Her PCR noted that she had the human metapneumo virus. She has improved steadily through her stay. She will be discharged home today and further fo llow up with her primary care provider. HOSPITAL COURSE: 1. Reactive airway disease secondary to an upper respiratory viral infection. She is much improved, has weaned off her prednisone. She felt this was not helping her. Have recommended that she take h er Symbicort scheduled instead of p.r.n., which has helped. 2. Acute hypoxemic respiratory failure, resolved. 3. History of PE and DVT. INR is therapeutic at 2.28. 4. History of tongue cancer. She was seen at [facility]. DISCHARGE CONDITION: Stable. Blood pressure is 129/81, heart rate is 79, respiratory rate is 20, O2 saturations on room air during my evaluation were 94% to 96%. Temperature us 36.5 Celsius. MEDICATIONS AT DISCHARGE: Please see the EMR. DISCHARGE INSTRUCTIONS: 1. To take it easy for the next week or so until she is feeling much better. 2. Stop her prednisone. 3. Consider Flonase and Alisha to help with the congestion and asthma type symptoms. TIME SPENT: Greater than 30 minutes discharging and coordinating her care. /[id number]/MODL
== END 2017-05-08 11:36 | disposition home or self-care (01) | DRG 202 ==
LOC: OBSVTOIN 05:53 → F3E 06:40
PROVIDERS: ADMIT Student in an Organized Health Care Education/Training Program; ATTEND Student in an Organized Health Care Education/Training Program
DX: J45.901 Unspecified asthma with (acute) exacerbation (principal); J96.01 Acute respiratory failure with hypoxia; J06.9 Acute upper respiratory infection, unspecified; B97.81 Human metapneumovirus as the cause of diseases classified elsewhere; Z86.711 Personal history of pulmonary embolism; Z86.718 Personal history of other venous thrombosis and embolism; Z85.810 Personal history of malignant neoplasm of tongue; Z88.0 Allergy status to penicillin; Z87.01 Personal history of pneumonia (recurrent)
CPT/HCPCS: J0696; J1650; J1956; J3475; J7512; J7613

== ENCOUNTER → 2017-08-28 | Outpatient (CLI) | payer OTHER | LOC: FIMAGING 09:52 | PROVIDERS: ATTEND Internal Medicine Hematology & Oncology | DX: Z12.31 Encounter for screening mammogram for malignant neoplasm of breast (principal) ==

== ENCOUNTER → 2017-10-29 | Outpatient (CLI) | payer OTHER | LOC: FIMAGING 10:05 | PROVIDERS: ATTEND Internal Medicine Hematology & Oncology | DX: R92.8 Other abnormal and inconclusive findings on diagnostic imaging of breast (principal) ==

== ENCOUNTER 2018-05-21 13:21 | Observation (INO) | payer OTHER ==
[2018-05-21] MEDS ORDERED: IPRATROPIUM/ALBUTEROL 3 ML DEYVIAL IH ONE (13:32)
[2018-05-21] MEDS ORDERED: IPRATROPIUM/ALBUTEROL 3 ML DEYVIAL ONE (13:32)
--- NOTE | 2018-05-21 13:38 | EDPHY ---
H & P Stated Complaint: difficulty breathing, asthma exacerbation Time Seen by Provider: 05/21/18 13:37 HPI/ROS: HPI CHIEF COMPLAINT: Shortness of breath, wheezing, worsening coughing, hemoptysis HISTORY OF PRESENT ILLNESS: This is a 73-year-old female, history of asthma, followed by [facility], additionally history of pneumonia presents to the emergency room with worsening shortness of breath that started earlier today. She states that she started wheezing earlier today and had an asthma attack earlier today however this got better but then went grocery shopping got progressively worsening shortness of breath. Some vigorous coughing. She also reports blood in her sputum. She quantifies this as a possible tbsp amount.. Denies fever. Does endorse shortness of breath. She states she was wheezing rather significantly earlier. Past Medical History: History of PE DVT on Coumadin, history of asthma followed by [facility], pneumonia, tongue cancer Past Surgical History: No recent surgery Social History: Denies drugs alcohol tobacco. Family History: Noncontributory ROS REVIEW OF SYSTEMS: 10 Systems were reviewed and negative with the exception of the elements mentioned in the history of present illness. Exam Constitutional triage nursing summary reviewed, vital signs reviewed, awake/ alert. Eyes normal conjunctivae and sclera, EOMI, PERRLA. HENT normal inspection, atraumatic, moist mucus membranes, no epistaxis, neck supple/ no meningismus, no raccoon eyes. Respiratory faint wheezing on exam bilaterally. Worse on the right than left. Cardiovascular rate normal, regular rhythm, no murmur, no edema, distal pulses normal. Gastrointestinal soft, non-tender, no rebound, no guarding, normal bowel sounds, no distension, no pulsatile mass. Genitourinary no CVA tenderness. Musculoskeletal no midline vertebral tenderness, full range of motion, no calf swelling, no tenderness of extremities, no meningismus, good pulses, neurovascularly intact. Skin pink, warm, & dry, no rash, skin atraumatic. Neurologic awake, alert and oriented x 3, AAOx3, moves all 4 extremities equally, motor intact, sensory intact, CN II-XII intact, normal cerebellar, normal vision, normal speech. Psychiatric normal mood/affect. Heme/Lymph/Immune no lymphadenopathy. Differential Diagnosis: Includes but is not limited to in a particular order acute asthma exacerbation, pneumonia, viral syndrome, PE Medical Decision Making: Plan for this patient IV establishment IV fluid bolus , IV Solu-Medrol, DuoNeb breathing treatment, basic labs, EKG and re-evaluate. Chest x-ray. Re-evaluation: EKG interpretation by me on record in [employer] system. Impression time of EKG 1359, sinus rhythm rate of 98, without any signs of acute ischemia no ST elevation. Labs reviewed. Chest x-ray shows no evidence of pneumonia. The patient does not have an elevated white count. H&H are stable. 1554: Patient re-evaluated clear lungs bilaterally after DuoNeb breathing treatment. She does feel better however complains of sore throat, ongoing cough. I had a long discussion with her about being admitted observed overnight due hemoptysis, asthma and wheezing. Initially she did not want to stay overnight but after further discussion of her hemoptysis vigorous coughing ongoing wheezing sore throat and concerned that she was profoundly short of breath prior to arrival she has agreed to stay. Hospitalist service consult Dr. Blanca agrees to admit. Source: Patient - Personal History Current Tetanus/Diphtheria Vaccine: Yes Current Tetanus Diphtheria and Acellular Pertussis (TDAP): Yes Tetanus Vaccine Date: 2007 - Medical/Surgical History Hx Asthma: No Hx Chronic Respiratory Disease: No Hx Diabetes: No Hx Cardiac Disease: No Hx Renal Disease: No Hx Cirrhosis: No Hx Alcoholism: No Hx HIV/AIDS: No Hx Splenectomy or Spleen Trauma: No Other PMH: tongue cancer, hypercoagulative blood disorder, superficial blood clots, knee replacements, pulmonary embolus, asthma, - Social History Smoking Status: Never smoked Constitutional: Initial Vital Signs Temperature (C) 37 C 05/21/18 13:24 Heart Rate 99 05/21/18 13:24 Respiratory Rate 19 05/21/18 13:24 Blood Pressure 142/82 H 05/21/18 13:24 O2 Sat (%) 95 05/21/18 13:24 O2 Delivery Mode Room Air Allergies/Adverse Reactions: Penicillins Allergy (Severe, Verified 05/04/17 05:08) Anaphylaxis oxycodone HCl [From Percocet] Allergy (Verified 05/04/17 05:08) Other-Enter Comments Home Medications: Medication Instructions Recorded Albuterol [Proventil Inhaler HFA 1 puffs IH Q4H PRN 05/04/17 (*)] Ferrous Sulfate [Ferrous Sulf 325 325 mg PO BID 05/04/17 MG (*)] Warfarin Sodium [Coumadin 2MG (*)] 2 mg PO SUTUTHSA@1630 05/04/17 Warfarin Sodium [Coumadin 2MG (*)] 3 mg PO MWF@1630 05/04/17 Budesonide/Formoterol 160/4.5 1 puffs IH DAILY 05/21/18 [Symbicort 160-4.5 Mcg Inh (*)] Albuterol [Proventil Neb] 3 ml IH QID PRN #120 deyvial 05/22/18 Benzonatate [Tessalon Pearles] 200 mg PO TID PRN #20 cap 05/22/18 predniSONE 40 mg PO DAILY #6 tablet 05/22/18 Medical Decision Making - Data Points Laboratory Results: Laboratory Results 05/21/18 14:00 05/21/18 14:00 Medications Given: Discontinued Medications Albuterol (Proventil Neb) 3 ml IH Q6H [facility] Stop: 11/17/18 18:29 Last Admin: 05/22/18 10:48 Dose: Not Given Albuterol/Ipratropium (Duoneb) 3 ml IH EDNOW ONE Stop: 05/21/18 13:33 Last Admin: 05/21/18 13:33 Dose: 3 ml Budesonide/Formoterol Fumarate (Symbicort 160-4.5 Mcg Inhaler) 1 puffs IH DAILY [facility] Stop: 11/18/18 08:59 Last Admin: 05/22/18 10:48 Dose: Not Given Ferrous Sulfate (Ferrous Sulfate) 325 mg PO BID [facility] Stop: 11/17/18 20:59 Last Admin: 05/22/18 09:28 Dose: 325 mg Sodium Chloride (Ns) 1,000 mls @ 0 mls/hr IV EDNOW ONE; Wide Open PRN Reason: Protocol Stop: 05/21/18 13:50 Last Admin: 05/21/18 14:06 Dose: 1,000 mls Methylprednisolone Sodium Succinate (Solu-Medrol) 125 mg IVP EDNOW ONE Stop: 05/21/18 13:51 Last Admin: 05/21/18 14:06 Dose: 125 mg Morphine Sulfate (Morphine) 4 mg IVP EDNOW ONE Stop: 05/21/18 15:47 Last Admin: 05/21/18 16:10 Dose: 4 mg Ondansetron HCl (Zofran) 4 mg IVP EDNOW ONE Stop: 05/21/18 15:48 Last Admin: 05/21/18 16:10 Dose: 4 mg Prednisone (Prednisone) 40 mg PO DAILY ALIZE Stop: 11/18/18 08:59 Last Admin: 05/22/18 09:28 Dose: 40 mg Point of Care Test Results: Chemistry 05/21/18 14:09 POC Troponin I 0.01 ng/mL ng/mL (0.00-0.08) Departure - Departure Disposition: [facility] Inpatient Acute Clinical Impression: Acute bronchitis, Exacerbation of asthma, Hemoptysis Condition: Fair
[2018-05-21] MEDS ORDERED: NS 1,000 ML IV ONE (13:49)
[2018-05-21] MEDS ORDERED: methylPREDNISolone SOD SUCC 125 MG/2 ML VIAL IVP ONE (13:50)
[2018-05-21 14:20] LABS: PLATELET COUNT 257 10^3/uL (150-400)
[2018-05-21 14:59] LABS: INR 2.67 (0.83-1.16); PROTIME(PATIENT) 27.1 SEC (12.0-15.0)
[2018-05-21] MEDS ORDERED: ONDANSETRON 4 MG/2 ML VIAL IVP ONE (15:47)
[2018-05-21] MEDS ORDERED: ONDANSETRON DISINTEGRATING 4 MG TAB PO PRN (16:22)
[2018-05-21] MEDS ORDERED: ONDANSETRON 4 MG/2 ML VIAL IVP PRN (16:22)
[2018-05-21] MEDS ORDERED: ACETAMINOPHEN 325 MG TAB PO PRN (16:22)
[2018-05-21] MEDS ORDERED: oxyCODONE IR 5 MG TAB PO PRN (16:22)
--- NOTE | 2018-05-21 16:29 | PDGENHP ---
History and Physical - Chief Complaint shortness of breath, blood in sputum - History of Present Illness 72yo F with history of DVT/PE on warfarin, RAD, tongue CA presents with acute onset shortness of breath. She had numerous episodes of non-bloody emesis after eating a pizza 2 days ago. The vomiting resolved but she's had a sore throat ever since. This morning, she worked out and then acutely developed wheezing and had difficulty catching her breath. She used her albuterol inhaler to minimal benefit. On the way to the ED, she had 3-4 episodes of blood mixed in with her sputum. She says it was less than a teaspoon each time. No recent fevers or chills. No mylagias or other symptoms consistent with the flu. No diarrhea. In the ED, she was noted to be wheezy. This improved after a nebulizer treatment and IV steroids. She is not hypoxic. She is being admitted for monitoring. Case discussed with ED physician Werner Cruz. History Information - Allergies/Home Medication List Allergies/Adverse Reactions: Penicillins Allergy (Severe, Verified 05/04/17 05:08) Anaphylaxis oxycodone HCl [From Percocet] Allergy (Verified 05/04/17 05:08) Other-Enter Comments Home Medications: Albuterol [Proventil Inhaler HFA (*)] 1 puffs IH Q4H PRN 05/04/17 [Last Taken ] Ferrous Sulfate [Ferrous Sulf 325 MG (*)] 325 mg PO BID 05/04/17 [Last Taken ] Warfarin Sodium [Coumadin 2MG (*)] 2 mg PO SUTUTHSA@1630 05/04/17 [Last Taken ] Warfarin Sodium [Coumadin 2MG (*)] 3 mg PO MWF@1630 05/04/17 [Last Taken ] Budesonide/Formoterol 160/4.5 [Symbicort 160-4.5 Mcg Inh (*)] 1 puffs IH DAILY 05/21/18 [Last Taken 05/21/18] I have personally reviewed and updated: family history, medical history, social history, surgical history - Past Medical History Additional medical history: RAD (followed at [facility]), tongue cancer, DVT/ PE (followed by Adia Sterling at [facility]) - Surgical History Reports: no pertinent surgical hx - Family History Positive for: cancer - Social History Smoking Status: Never smoked Alcohol Use: None Drug Use: None Additional social history: Lives with . Very active, rides horses. Review of Systems Review of Systems: ROS: 10pt was reviewed & negative except for what was stated in HPI & below Physical Exam Physical Exam: Temp Pulse Resp BP Pulse Ox 37 C 99 19 142/82 H 95 05/21/18 13:24 05/21/18 13:24 05/21/18 13:24 05/21/18 13:24 05/21/18 13:24 Constitutional: no apparent distress, appears nourished, not in pain Eyes: PERRL, anicteric sclera, EOMI Ears, Nose, Mouth, Throat: moist mucous membranes, hearing normal, ears appear normal, no oral mucosal ulcers Cardiovascular: regular rate and rhythym, no murmur, rub, or gallop, edema ( venous stasis ble) Respiratory: no respiratory distress, reduced air movement, No expiratory wheeze , No rhonchi Gastrointestinal: normoactive bowel sounds, soft, non-tender abdomen, no palpable masses Genitourinary: no bladder fullness, no bladder tenderness Skin: warm, normal color, no rashes or abrasions, no fluctuance, no induration, No mottled Musculoskeletal: full muscle strength, no muscle tenderness, normal joint ROM, no joint effusions Neurologic: AAOx3 Psychiatric: interacting appropriately, not anxious, not encephalopathic, thought process linear Lab Data & Imaging Review 05/21/18 14:00 05/21/18 14:00 WBC 7.19 10^3/uL (3.80-9.50) 05/21/18 14:00 RBC 4.68 10^6/uL (4.18-5.33) 05/21/18 14:00 Hgb 13.1 g/dL (12.6-16.3) 05/21/18 14:00 Hct 40.7 % (38.0-47.0) 05/21/18 14:00 MCV 87.0 fL (81.5-99.8) 05/21/18 14:00 MCH 28.0 pg (27.9-34.1) 05/21/18 14:00 MCHC 32.2 g/dL (32.4-36.7) L 05/21/18 14:00 RDW 14.2 % (11.5-15.2) 05/21/18 14:00 Plt Count 257 10^3/uL (150-400) 05/21/18 14:00 MPV 9.6 fL (8.7-11.7) 05/21/18 14:00 Neut % (Auto) 65.4 % (39.3-74.2) 05/21/18 14:00 Lymph % (Auto) 25.6 % (15.0-45.0) 05/21/18 14:00 [place] % (Auto) 6.7 % (4.5-13.0) 05/21/18 14:00 Eos % (Auto) 1.3 % (0.6-7.6) 05/21/18 14:00 Baso % (Auto) 0.6 % (0.3-1.7) 05/21/18 14:00 Nucleat RBC Rel Count 0.0 % (0.0-0.2) 05/21/18 14:00 Absolute Neuts (auto) 4.71 10^3/uL (1.70-6.50) 05/21/18 14:00 Absolute Lymphs (auto) 1.84 10^3/uL (1.00-3.00) 05/21/18 14:00 Absolute Monos (auto) 0.48 10^3/uL (0.30-0.80) 05/21/18 14:00 Absolute Eos (auto) 0.09 10^3/uL (0.03-0.40) 05/21/18 14:00 Absolute Basos (auto) 0.04 10^3/uL (0.02-0.10) 05/21/18 14:00 Absolute Nucleated RBC 0.00 10^3/uL (0-0.01) 05/21/18 14:00 Immature Gran % 0.4 % (0.0-1.1) 05/21/18 14:00 Immature Gran # 0.03 10^3/uL (0.00-0.10) 05/21/18 14:00 PT 27.1 SEC (12.0-15.0) H 05/21/18 14:00 INR 2.67 (0.83-1.16) H 05/21/18 14:00 APTT 47.2 SEC (23.0-38.0) H 05/21/18 14:00 D-Dimer 0.44 ug/mLFEU (0.00-0.50) 05/21/18 14:00 Sodium 138 mEq/L (135-145) 05/21/18 14:00 Potassium 3.6 mEq/L (3.5-5.2) 05/21/18 14:00 Chloride 106 mEq/L (97-110) 05/21/18 14:00 Carbon Dioxide 22 mEq/l (22-31) 05/21/18 14:00 Anion Gap 10 mEq/L (6-14) 05/21/18 14:00 BUN 16 mg/dL (7-23) 05/21/18 14:00 Creatinine 0.8 mg/dL (0.6-1.0) 05/21/18 14:00 Estimated GFR > 60 05/21/18 14:00 Glucose 114 mg/dL (70-100) H 05/21/18 14:00 Calcium 8.9 mg/dL (8.5-10.4) 05/21/18 14:00 POC Troponin I 0.01 ng/mL (0.00-0.08) 05/21/18 14:09 NT-Pro-B Natriuret Pep 223 pg/mL (0-125) H 05/21/18 14:00 Interpretation: CXR: no focal infiltrate or effusion, no heart failure (interp by me) EKG additional interpertation: ECG: NSR, normal axis and intervals, old inferior q waves, no acute ischemic ST-T segment changes (interp by me) Assessment & Plan Assessment: 72yo F with history of DVT/PE on warfarin, RAD, tongue CA presents with acute onset shortness of breath and hemoptysis. Plan: #Acute RAD exacerbation: Suspect trigger possibly inflammation r/t aspiration with recent copious vomiting vs viral process. No e/o pneumonia. She is not hypoxic. - Check respiratory PCR - Prednisone 40mg daily - Schedule albuterol QID + q2h PRN - Continue home symbicort #Small volume hemoptysis: D/t airway inflammation from above in setting of warfarin use. - Recheck H/H in AM #H/o DVT/PE: INR currently therapeutic. - Continue warfarin, check INR in AM #H/o tongue cancer: Followed at [facility]. VTE ppx: therapeutic anticoagulation Code: full Diet: regular Dispo: Admit under observation
[2018-05-21] MEDS ORDERED: BENZONATATE 100 MG CAP PO PRN (16:34)
[2018-05-21] MEDS ORDERED: guaiFENesin 600 MG TAB.ER PO PRN (16:35)
[2018-05-21] MEDS ORDERED: ALBUTEROL 3 ML DEYVIAL IH PRN (16:35)
[2018-05-21] MEDS: ALBUTEROL 3 ML DEYVIAL IH SCH (18:17)
[2018-05-21] MEDS: FERROUS SULFATE 325 MG TAB PO SCH (20:13)
[2018-05-22] MEDS: ALBUTEROL 3 ML DEYVIAL IH SCH ×3 (00:21→10:48)
[2018-05-22 05:27] LABS: INR 2.8 (0.83-1.16); PROTIME(PATIENT) 28.1 SEC (12.0-15.0)
[2018-05-22 08:11] VITALS: BP 123/68
[2018-05-22] MEDS ORDERED: BUDESONIDE/FORMOTEROL 160/4.5 60 PUFFS/MDI IH SCH (09:00)
[2018-05-22] MEDS ORDERED: predniSONE 20 MG TAB PO SCH (09:00)
[2018-05-22] MEDS: FERROUS SULFATE 325 MG TAB PO SCH (09:28)
--- NOTE | 2018-05-22 10:48 | HOSPPROG ---
Hospitalist Progress Note Assessment/Plan: 72yo F with history of DVT/PE on warfarin, RAD, tongue CA presents with acute onset shortness of breath and hemoptysis. First encounter, chart reviewed. #Acute RAD exacerbation - Suspect trigger possibly inflammation r/t aspiration with recent copious vomiting vs viral process. -reviewed her chest x ray, no pna -respiratory PCR is negative -cont prednisone, cont home Symbicort #Small volume hemoptysis: D/t airway inflammation from above in setting of warfarin use. -hgb and hct dropped -will have recheck w PCP #H/o DVT/PE - Continue warfarin, check INR in AM #H/o tongue cancer: Followed at [facility]. Subjective: Kristin feels fine, wants to be dc as soon as possible Objective: Vital Signs Temp Pulse Resp BP Pulse Ox 36.9 C 94 16 123/68 H 93 05/22/18 08:00 05/22/18 08:00 05/22/18 08:00 05/22/18 08:00 05/22/18 08:00 Microbiology 05/21/18 17:45 Respiratory Panel (PCR) - Final Nasal, Sinus - Eswab No Organism Detected By Pcr Laboratory Results 05/22/18 04:58 05/21/18 05/22/18 05/23/18 05:59 05:59 05:59 Intake Total 1000 Balance 1000 PT 28.1 SEC (12.0-15.0) H 05/22/18 04:58 INR 2.80 (0.83-1.16) H 05/22/18 04:58 - Physical Exam Constitutional: no apparent distress, appears nourished, not in pain Eyes: PERRL Ears, Nose, Mouth, Throat: hearing normal Cardiovascular: regular rate and rhythym Respiratory: no respiratory distress, clear to auscultation Skin: warm Musculoskeletal: full muscle strength Neurologic: AAOx3 Psychiatric: interacting appropriately ICD10 Worksheet Patient Problems: Problems Problem Status Onset Acute bronchitis Acute Exacerbation of asthma Acute Exacerbation of asthma Acute Hemoptysis Acute Pulmonary embolism Acute
--- NOTE | 2018-05-22 12:02 | GDS ---
[f rep st] DISCHARGE SUMMARY DISCHARGE DIAGNOSES: 1. Acute reactive airway disease exacerbation. 2. Small volume hemoptysis. 3. History of deep venous thrombosis and pulmonary embolism. 4. History of tongue cancer. HISTORY: Briefly, the patient is a 73-year-old woman with a history of DVT and PE on warfarin, reactive airway disease, and tongue cancer. She presented with acute onset of shortness of breath and hemoptysis. Prior to these symptoms, she believes that she had some food poisoning. After she ate a meal, she had been vomiting significant amounts and noticed that she had hematemesis. She also had ongoing diarrhea that was noted to be somewhat bloody. Her symptoms have resolved. She was treated with IV steroids in the emergency room and now on oral steroids. She is feeling markedly better and is anxious to be discharged. HOSPITAL COURSE: 1. Acute reactive airway disease exacerbation. I suspect her trigger was inflammation related to aspiration with copious vomiting. I reviewed her chest x-ray, it shows no pneumonia. I will continue on prednisone for 3 more days. Will resume her home Symbicort. 2. Small volume hemoptysis. Her hemoglobin and hematocrit have trended down. Will have her get this recheck next week with her PCP. 3. History of DVT and PE. Resumed her warfarin. INR is therapeutic. 4. History of colon cancer followed at [facility]. DISCHARGE CONDITION: Stable. Blood pressure is 123/68, heart rate 94, respiratory rate 16, O2 sats on room air 93%, temperature 36.9 Celsius. MEDICATIONS AT DISCHARGE: Please see the EMR. DISCHARGE INSTRUCTIONS: 1. Repeat H and H next week. 2. To continue prednisone for the next 3 days. 3. To note that she has large hiatal hernia, if she has any problems with reflux, to follow up with her PCP. /[id number]/MODL MTDD
[2018-05-22] MEDS ORDERED: WARFARIN SODIUM 2 MG TAB PO SCH (16:30)
--- NOTE | 2018-05-23 07:55 | CPEKG ---
Test Reason : OPEN Blood Pressure : / mmHG Vent. Rate : 098 BPM Atrial Rate : 094 BPM P-R Int : 142 ms QRS Dur : 093 ms QT Int : 367 ms P-R-T Axes : 031 -15 003 degrees QTc Int : 469 ms Sinus rhythm Inferior infarct, old Confirmed by Werner Cruz ([id number]) on 05/23/2018 7:55:10 AM Referred By: Werner Cruz Confirmed By:Werner Cruz
[2018-05-23] MEDS ORDERED: WARFARIN SODIUM 2 MG TAB PO SCH (16:30)
== END 2018-05-22 11:41 | disposition home or self-care (01) ==
LOC: F3E 17:52
PROVIDERS: ADMIT Internal Medicine; ATTEND Internal Medicine
DX: J45.901 Unspecified asthma with (acute) exacerbation (principal); R04.2 Hemoptysis; J20.9 Acute bronchitis, unspecified; E86.9 Volume depletion, unspecified; K44.9 Diaphragmatic hernia without obstruction or gangrene; Z86.718 Personal history of other venous thrombosis and embolism; Z85.810 Personal history of malignant neoplasm of tongue; Z79.01 Long term (current) use of anticoagulants
CPT/HCPCS: 71045; 93005; 96361; 96374; 96375; 99285; G0378; J2270; J2405; J2930; J7512; J7613; 84484-ER

== ENCOUNTER → 2018-08-08 | Outpatient (CLI) | payer OTHER | LOC: FIMAGING 13:19 ==

== ENCOUNTER 2018-08-17 10:23 | Day surgery (SDC) | payer OTHER | END 2018-08-17 16:55 | disposition home or self-care (01) | LOC: FIMAGING 10:23 ==